=== PATIENT | male | born 1980 | race African-American/Black ===

== ENCOUNTER 2020-10-02 17:21 | Emergency (ER) | payer OTHER ==
[~2020-10-02] VITALS: Ht 170.2 cm; Wt 60.0 kg
[2020-10-02] MEDS ORDERED: ACETAMINOPHEN 325MG TABLET PO ONE (19:00)
[2020-10-02] MEDS ORDERED: IBUPROFEN 400MG TABLET PO ONE (19:00)
[2020-10-02] MEDS ORDERED: HYDROCODONE/ACETAMINOPHEN 10/325MG TABLET PO ONE (19:00)
[2020-10-02] MEDS ORDERED: LIDOCAINE 5% PATCH TOP SCH (19:00)
[2020-10-02] MEDS ORDERED: HYDR-4346 MT (20:02)
[2020-10-02] MEDS ORDERED: HYDROMORPHONE HCL/PF 2MG/ML CPJ IM ONE (20:15)
[2020-10-02 21:40] VITALS: BP 126/83
== END 2020-10-02 22:46 | disposition home or self-care (01) ==
LOC: ER 17:21
DX: M54.5 Low back pain (principal)
CPT/HCPCS: 96372; 99284; J1170